=== PATIENT | female | born 1930 | race Caucasian/White ===

== ENCOUNTER 2019-05-04 06:21 | Emergency (ER) | payer MEDICARE, BC ==
[2019-05-04] MEDS ORDERED: Albuterol/Ipratropium 3.0-0.5 MG/3 ML Neb Soln NEB ONE (07:07)
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
[2019-05-04] MEDS ORDERED: predniSONE 20 MG Tab PO ONE (07:51)
== END 2019-05-04 08:06 | disposition home or self-care (01) ==
LOC: JP.ED 06:21
DX: J44.1 Chronic obstructive pulmonary disease with (acute) exacerbation (principal); I10 Essential (primary) hypertension; Z79.899 Other long term (current) drug therapy; Z98.890 Other specified postprocedural states
CPT/HCPCS: 36415; 85027; 94640; 99285; A9270; 99283; J7620-GY

== ENCOUNTER 2019-05-24 21:12 | Emergency (ER) | payer MEDICARE, BC ==
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
== END 2019-05-25 00:52 | disposition expired ==
LOC: JP.ED 21:12
DX: I10 Essential (primary) hypertension; J44.9 Chronic obstructive pulmonary disease, unspecified; Z79.899 Other long term (current) drug therapy
CPT/HCPCS: 99282; 99285